=== PATIENT | female | born 1945 | race Caucasian/White ===

== ENCOUNTER → 2020-02-07 | Outpatient (CLI) | payer OTHER | END | disposition home or self-care (01) | LOC: COVID19 09:02 | DX: Z20.828 Contact with and (suspected) exposure to other viral communicable diseases (principal) ==

== ENCOUNTER 2020-04-26 09:57 | Observation (INO) | payer OTHER ==
[~2020-04-26] VITALS: Ht 160 cm; Wt 93.9 kg
[2020-04-26 10:00] VITALS: BP 144/86
[2020-04-26 10:30] LABS: BASO % 0.5 % (0.0-1.0); EOS # 0.1 10*3/uL (0.0-0.4); EOS % 1.5 % (1.0-4.0); HEMATOCRIT 46.7 % (37.0-47.0); LYMPH # 2.1 10*3/uL (1.3-4.4); LYMPH % 25.5 % (27.0-41.0); MEAN CELL VOLUME 84.3 fl (81.0-99.0); MEAN CORPUSCULAR HGB 26.7 pg (27.0-31.0); MEAN CORPUSCULAR HGB CONC 31.7 g/dl (33.0-37.0); MEAN PLATELET VOLUME 9.5 fl (9.6-12.3); MONO # 0.5 10*3/uL (0.1-1.0); MONO % 6.7 % (3.0-9.0); NEUT # 5.3 10*3/uL (2.3-7.9); NEUT % 65.4 % (47.0-73.0); PLATELET COUNT AUTOMATED 271 10*3/uL (130-400); RED BLOOD COUNT 5.54 10*6/uL (4.10-5.10); RED CELL DISTRI WIDTH 13.1 % (0-14.5)
[2020-04-26 10:41] LABS: ACT PARTIAL THROMBO TIME 28.5 SECONDS (20.0-32.1)
[2020-04-26 10:46] LABS: ALBUMIN 3.7 gm/dl (3.1-4.5); ALKALINE PHOSPHATASE 124 U/L (45-117); BUN 18 mg/dl (7-24); CHLORIDE 106 mmol/L (98-107); CREATININE 0.91 mg/dL (0.55-1.02); LIPASE 113 U/L (73-393); POTASSIUM 3.8 mmol/L (3.5-5.1); SGOT/AST 19 IU/L (3-35); SGPT/ALT 18 U/L (12-78); SODIUM 141 mmol/L (136-145)
[2020-04-26 10:48] LABS: TROPONIN I < 0.015 ng/ml (<0.045)
--- NOTE | 2020-04-26 10:51 | NUR ---
PT GIVEN 2 WARM BLANKETS BED IN LOWEST POSITION BED RAILS UP CALL LIGHT IN REACH PT STATES SHE NO LONGER IS NAUSEATED AFTER ZOFRAN IV
[2020-04-26 12:31] VITALS: BP 130/59
[2020-04-26 12:42] LABS: BILIRUBIN Negative (Negative); BLOOD Negative (Negative); CLARITY Clear (Clear); COLOR Yellow (Yellow); GLUCOSE Negative (Negative); KETONE Negative (Negative); LEUKO ESTERASE Trace (Negative); NITRITE Negative (Negative); PH 6.5 (4.5-8.0); SPECIFIC GRAVITY 1.015 (1.001-1.030); UROBILINOGEN 0.2 E.U./dl (0.0-1.0)
[2020-04-26 12:54] LABS: BACTERIA 1+
--- NOTE | 2020-04-26 14:39 | NUR ---
PT BEING ADMITTED,VOICES UNDERSTANDING.DENIES C/O AT THIS TIME.VITALS STABLE.---OSIRIS JAEGER RN
[2020-04-26 14:42] VITALS: BP 124/51
[2020-04-26 15:30] VITALS: BP 142/74
--- NOTE | 2020-04-26 15:30 | NUR ---
Time: 1529 A 75 year old F admitted to 5E under services of GWENDOLYN OLIVIA DO. Pt. arrived via ambulatory from ER. Chief complaint: syncopal episode, nausea and vomiting ELVIS LEONE
[2020-04-26] MEDS ORDERED: PRILOSEC20 M1 PO (16:25)
[2020-04-26] MEDS ORDERED: NORVASC5 MG PO (16:25)
[2020-04-26] MEDS ORDERED: ZOLOFT25 MG PO (16:26)
[2020-04-26] MEDS ORDERED: LOSARTAN POTAS100 M1 PO (16:26)
[2020-04-26 20:00] VITALS: BP 115/64
--- NOTE | 2020-04-26 22:00 | NUR ---
PT RESTING IN BED. RESP-EASY AND REGULAR. PT DENIES ANY N/V OR DIZZINESS AT THIS TIME. IVF INFUSING WITH NO PROBLEM. NO C/O AT THIS TIME. CALL LIGHT IN REACH. WILL CON'T TO MONITOR.
[2020-04-27] VITALS: BP 103/44
--- NOTE | 2020-04-27 00:10 | NUR ---
PT RESTING IN BED WITH EYES CLOSED. RESP-EASY AND REGULAR. AWAKENS EASILY. IVF INFUSING WITH NO PROBLEM. CALL LIGHT IN REACH. SEE SHIFT ASSESSMENT.
--- NOTE | 2020-04-27 03:15 | NUR ---
PT SITTING UP IN BED C/O INDIGESTION. MEDICATED WITH PRILOSEC PER ORDER, SEE EMAR. PER PT REQUEST. CALL LIGHT IN REACH.
--- NOTE | 2020-04-27 04:20 | NUR ---
SLEEPING IN BED. RESP-EASY AND REGULAR. CALL LIGHT IN REACH.
--- NOTE | 2020-04-27 05:00 | NUR ---
RESTING IN BED WITH EYES CLOSED. RESP-EASY AND REGULAR. CALL LIGHT IN REACH.
[2020-04-27 06:34] LABS: BASO % 0.5 % (0.0-1.0); EOS # 0.1 10*3/uL (0.0-0.4); HEMATOCRIT 41.7 % (37.0-47.0); LYMPH # 2.3 10*3/uL (1.3-4.4); LYMPH % 38.1 % (27.0-41.0); MEAN CORPUSCULAR HGB CONC 31.4 g/dl (33.0-37.0); MEAN PLATELET VOLUME 9.8 fl (9.6-12.3); MONO # 0.6 10*3/uL (0.1-1.0); MONO % 9.4 % (3.0-9.0); NEUT # 3.1 10*3/uL (2.3-7.9); NEUT % 49.8 % (47.0-73.0); PLATELET COUNT AUTOMATED 235 10*3/uL (130-400); RED BLOOD COUNT 4.85 10*6/uL (4.10-5.10); RED CELL DISTRI WIDTH 13.4 % (0-14.5); WHITE BLOOD COUNT 6.1 10*3/uL (4.8-10.8)
[2020-04-27 06:37] LABS: ALBUMIN 3.1 gm/dl (3.1-4.5); ALKALINE PHOSPHATASE 99 U/L (45-117); BUN 19 mg/dl (7-24); CHLORIDE 111 mmol/L (98-107); CHOLESTEROL 168 mg/dL (<200); CREATININE 0.83 mg/dL (0.55-1.02); HDL CHOLESTEROL 50 mg/dl (40-60); LDL CHOLESTEROL 96 mg/dL (9-159); POTASSIUM 4.2 mmol/L (3.5-5.1); SGOT/AST 15 IU/L (3-35); SGPT/ALT 16 U/L (12-78); SODIUM 143 mmol/L (136-145); TOTAL PROTEIN 6.5 gm/dL (6.4-8.2); TRIGLYCERIDES 111 mg/dl (<150); VLDL CHOLESTEROL 22 mg/dL (6-40)
[2020-04-27 08:00] VITALS: BP 142/75
[2020-04-27] MEDS ORDERED: MECLIZINE HCL25 M2 PO (11:15)
--- NOTE | 2020-04-27 12:19 | NUR ---
Product Support Analyst in to talk to patient. Patient states lives at HOME with NIECE AND NEPHEW. There are [address] steps in the home. Physician: XAVI NICHOLE [facility]acy: [facility] [place] [facility]: NONE Patient's level of ADLs: INDEPENDENT Patient has working utilities: YES DME: NONE Follow-up physician's appointment after d/c: WILL BE MADE BY HOSPITALIST NURSE DIRECTOR Does patient want to access PORTAL?: NO Discharge plan PT LIVES AT HOME WITH NEICE AND NEPHEW AND IS INDEPENDENT IN CARE. DENIES SHE WILL HAVE NEEDS ON DISCHARGE. PLAN IS TOR RETURN HOME WHEN MEDICALLY STABLE. WILL CONTINUE TO FOLLOW. WILL HAVE A RIDE HOME.. SWATHI GELLER
--- NOTE | 2020-04-27 12:59 | NUR ---
[facility] Discharge instructions reviewed with patient/family. Patient receptive and verbalizes understanding. Follow-up care arranged. Written instructions given to patient/family. JEWEL STONER
== END 2020-04-27 12:59 | disposition home or self-care (01) ==
LOC: ED 09:57 → EDHOLD 13:32 → 5E 13:32
PROVIDERS: Emergency Medicine; Student in an Organized Health Care Education/Training Program; ADMIT Family Medicine; ATTEND Family Medicine
DX: R42 Dizziness and giddiness (principal); R11.2 Nausea with vomiting, unspecified; R26.81 Unsteadiness on feet; R74.8 Abnormal levels of other serum enzymes; R79.82 Elevated C-reactive protein (CRP); R73.9 Hyperglycemia, unspecified; I10 Essential (primary) hypertension; E78.5 Hyperlipidemia, unspecified

== ENCOUNTER 2021-12-03 09:55 | Inpatient (IN) | payer MEDICARE ==
[~2021-12-03] VITALS: Ht 160 cm; Wt 94.4 kg
[~2021-12-03 09:55] MED LIST: LOSARTAN POTAS100 M1 PO; MECLIZINE HCL25 M2 PO; NORVASC5 MG PO; PRILOSEC20 M1 PO; ZOLOFT25 MG PO
[2021-12-03 10:03] VITALS: BP 145/77
[2021-12-03] MEDS ORDERED: VITAMIN B-121000 MC2 PO (10:39)
[2021-12-03] MEDS ORDERED: ZETIA10 MG PO (10:40)
[2021-12-03] MEDS ORDERED: VITAMIN D350 MCG PO (10:40)
[2021-12-03] MEDS ORDERED: TOPROL XL25 MG PO (10:41)
[2021-12-03 10:54] LABS: HEMATOCRIT 47.6 % (37.0-47.0); MEAN CELL VOLUME 84.4 fl (81.0-99.0); MEAN CORPUSCULAR HGB 27.7 pg (27.0-31.0); MEAN CORPUSCULAR HGB CONC 32.8 g/dl (33.0-37.0); MEAN PLATELET VOLUME 9.9 fl (9.6-12.3); PLATELET COUNT AUTOMATED 159 10*3/uL (130-400); RED BLOOD COUNT 5.64 10*6/uL (4.10-5.10); RED CELL DISTRI WIDTH 13.4 % (0-14.5); WHITE BLOOD COUNT 4.1 10*3/uL (4.8-10.8)
[2021-12-03 10:55] LABS: MANUAL DIFF REFLEX YES
[2021-12-03 11:04] LABS: ALKALINE PHOSPHATASE 389 U/L (45-117); BUN 15 mg/dl (7-24); CHLORIDE 103 mmol/L (98-107); CPK 61 U/L (26-192); CREATININE 1.07 mg/dL (0.55-1.02); POTASSIUM 3.4 mmol/L (3.5-5.1); SGOT/AST 203 IU/L (3-35); SGPT/ALT 176 U/L (12-78); SODIUM 137 mmol/L (136-145); TOTAL PROTEIN 7.1 gm/dL (6.4-8.2)
[2021-12-03 11:10] LABS: ATYPICAL LYMPHS 1 % (0-0); TOTAL CELLS COUNTED 100 #CELLS
[2021-12-03 11:11] LABS: PLATELET SUFFICIENCY NORMAL (NORMAL); POLYCHROMASIA SLIGHT
[2021-12-03 13:05] LABS: BILIRUBIN 2+ (Negative); BLOOD Negative (Negative); CLARITY Cloudy (Clear); COLOR Dark Yellow (Yellow); GLUCOSE Negative (Negative); KETONE 1+ (Negative); LEUKO ESTERASE 2+ (Negative); NITRITE Negative (Negative); PH 6.5 (4.5-8.0); SPECIFIC GRAVITY 1.025 (1.001-1.030)
[2021-12-03 13:33] LABS: BACTERIA 2+; EPITHELIAL CELLS 31-40; WBC 41-50 wbc/hpf (0-5)
[2021-12-03 16:51] VITALS: BP 150/84
[2021-12-03 16:59] VITALS: BP 152/81
[2021-12-03 20:00] VITALS: BP 150/70
[2021-12-04 05:33] LABS: ALKALINE PHOSPHATASE 444 U/L (45-117); BUN 14 mg/dl (7-24); CHLORIDE 106 mmol/L (98-107); CHOLESTEROL 110 mg/dL (<200); CREATININE 0.89 mg/dL (0.55-1.02); FREE T4 1.37 ng/dl (0.76-1.46); LDL CHOLESTEROL 59 mg/dL (9-159); POTASSIUM 3.8 mmol/L (3.5-5.1); SGOT/AST 139 IU/L (3-35); SGPT/ALT 143 U/L (12-78); SODIUM 138 mmol/L (136-145); TOTAL PROTEIN 6.4 gm/dL (6.4-8.2); TRIGLYCERIDES 147 mg/dl (<150)
[2021-12-04 06:17] LABS: HEMATOCRIT 44.2 % (37.0-47.0); MEAN CELL VOLUME 84.7 fl (81.0-99.0); MEAN CORPUSCULAR HGB 27.4 pg (27.0-31.0); MEAN CORPUSCULAR HGB CONC 32.4 g/dl (33.0-37.0); MEAN PLATELET VOLUME 10.5 fl (9.6-12.3); PLATELET COUNT AUTOMATED 135 10*3/uL (130-400); RED BLOOD COUNT 5.22 10*6/uL (4.10-5.10); RED CELL DISTRI WIDTH 13.6 % (0-14.5); WHITE BLOOD COUNT 5.7 10*3/uL (4.8-10.8)
[2021-12-04 06:18] LABS: MANUAL DIFF REFLEX YES
[2021-12-04 07:01] LABS: ATYPICAL LYMPHS 1 % (0-0); BURR CELLS FEW; PLATELET SUFFICIENCY NORMAL (NORMAL); POLYCHROMASIA SLIGHT; TOTAL CELLS COUNTED 100 #CELLS
[2021-12-04 08:00] VITALS: BP 127/76
[2021-12-04 12:00] VITALS: BP 119/59
[2021-12-04 15:55] VITALS: BP 122/58
[2021-12-04 20:00] VITALS: BP 128/51
[2021-12-05] VITALS: BP 136/72
[2021-12-05 08:00] VITALS: BP 126/60
[2021-12-05 12:00] VITALS: BP 139/59
[2021-12-05 16:00] VITALS: BP 140/60
[2021-12-05 20:00] VITALS: BP 140/68
[2021-12-06 04:56] LABS: CREATININE 1.67 mg/dL (0.55-1.02); POTASSIUM 3.4 mmol/L (3.5-5.1)
[2021-12-06 06:47] LABS: BASO % 0.5 % (0.0-1.0); EOS # 0.2 10*3/uL (0.0-0.4); EOS % 4.4 % (1.0-4.0); HEMATOCRIT 39.3 % (37.0-47.0); LYMPH # 2.3 10*3/uL (1.3-4.4); LYMPH % 41.9 % (27.0-41.0); MEAN CORPUSCULAR HGB 27.4 pg (27.0-31.0); MEAN CORPUSCULAR HGB CONC 32.6 g/dl (33.0-37.0); MEAN PLATELET VOLUME 10.3 fl (9.6-12.3); MONO # 0.7 10*3/uL (0.1-1.0); MONO % 12.8 % (3.0-9.0); NEUT # 2.2 10*3/uL (2.3-7.9); RED BLOOD COUNT 4.68 10*6/uL (4.10-5.10); RED CELL DISTRI WIDTH 14.1 % (0-14.5); WHITE BLOOD COUNT 5.5 10*3/uL (4.8-10.8)
[2021-12-06 06:51] LABS: PLATELET COUNT AUTOMATED 185 10*3/uL (130-400)
[2021-12-06 08:00] VITALS: BP 148/79
[2021-12-06] MEDS ORDERED: VIBRAMYCIN100 MG PO (11:09)
[2021-12-06] MEDS ORDERED: VITAMIN D350 MCG PO (11:09)
[2021-12-06 12:00] VITALS: BP 141/62
== END 2021-12-06 13:47 | disposition home or self-care (01) | DRG 871 ==
LOC: ED 09:55 → EDHOLD 15:28 → 4E 15:28
PROVIDERS: Emergency Medicine; Registered Nurse; Student in an Organized Health Care Education/Training Program; ADMIT Internal Medicine; ATTEND Internal Medicine
DX: A41.9 Sepsis, unspecified organism (principal); N17.0 Acute kidney failure with tubular necrosis; U07.1 COVID-19; L03.113 Cellulitis of right upper limb; E44.0 Moderate protein-calorie malnutrition; E87.6 Hypokalemia; R65.20 Severe sepsis without septic shock; K21.9 Gastro-esophageal reflux disease without esophagitis; I10 Essential (primary) hypertension; E78.2 Mixed hyperlipidemia; Z88.5 Allergy status to narcotic agent; Z88.8 Allergy status to other drugs, medicaments and biological substances; Z79.899 Other long term (current) drug therapy; Z83.3 Family history of diabetes mellitus; Z68.36 Body mass index [BMI] 36.0-36.9, adult